=== PATIENT | female | born 1965 | race Caucasian/White ===

== ENCOUNTER 2021-03-06 11:53 | Outpatient (CLI) | payer OTHER, SELFPAY ==
[2021-03-06 12:37] VITALS: BP 120/77; PULSE 79; RESP 14; TEMP 37.2; O2SAT 97
[2021-03-06 13:46] VITALS: BP 109/70; PULSE 74; O2SAT 98
[2021-03-06 14:45] VITALS: BP 113/74; PULSE 72; O2SAT 98
== END 2021-03-06 14:52 | disposition home or self-care (01) ==
LOC: OPS 11:55
PROVIDERS: PCP Family Medicine; Visit Provider Nurse Practitioner Family
DX: U07.1 COVID-19 (principal)
CPT/HCPCS: 96365

== ENCOUNTER 2021-06-08 08:38 | Outpatient (CLI) | payer OTHER, SELFPAY ==
--- NOTE | 2021-06-08 08:50 | MM_ITS ---
WS: [id number] Bilateral screening digital mammogram, 06/08/2021 Clinical Data: SCREENING Comparison: 04/06/2019, 04/02/2018, 03/14/2017, 01/03/2012, 10/22/2006. Findings: The breast parenchymal pattern shows heterogeneous density No spiculated masses or clustered calcific ations are seen. There are no secondary signs of carcinoma. MM/[id number] Impression: 1. Negative bilateral mammogram unchanged. 2. Recommend annual screening mammograms. BIRADS: 1-Negative FOLLOW UP: 1 Year Follow-up The CAD mechanical car checker was used.
== END 2021-06-08 08:39 | disposition home or self-care (01) ==
LOC: RADSHAW 08:40
PROVIDERS: PCP Family Medicine; Visit Provider Family Medicine
DX: Z12.31 Encounter for screening mammogram for malignant neoplasm of breast (principal)
CPT/HCPCS: 77067

== ENCOUNTER 2021-07-02 07:58 | Outpatient (CLI) | payer OTHER, SELFPAY ==
--- NOTE | 2021-07-02 08:15 | CT_ITS ---
WS: [id number] CT ABDOMEN AND PELVIS WITH CONTRAST HISTORY: Colon mass. TECHNIQUE: Imaging performed of the abdomen and pelvis with IV contrast. Single phase imaging of the abdomen. Coronal and sagittal reformats are submitted. All CT scans at [facility] use at [address] one of these dose optimization techniques: automated exposure control; mA and/or kV adjustment per patient size (includes targeted exams where dose is matched to clinical indication); or iterative re construction. IV CONTRAST: Omnipaque 300; 95 mL IV. Oral contrast: Yes. DLP: 1048.58 mGycm COMPARISON: None available. Lower thorax: No focal nodule. Mild interstitial thickening at the lung bases. Heart is normal size. Small hiatal hernia. Liver/biliary system: Hypoechoic 6 mm nodule in the LEFT lobe of the liver adjacent to the gallbladde r. Too small to characterize and probably a cyst. Normal portal vein. Normal hepatic veins. Mild hepa tic steatosis along the falciform ligament. Gallbladder: Well distended gallbladder with cholelithiasis. Pancreas: Normal size pancreas and pancreatic duct. No adjacent inflammation. Spleen: Normal size spleen. No mass or infarct. Adrenal glands: Normal. Right kidney: Normal. Left kidney: Normal. Aorta: Minimal atherosclerotic plaque. Lymphadenopathy: None. Free fluid: None. GI tract: There is significant fecal retention and constipation throughout the distal colon obscuring the mucosa and the wall. No obstruction. Increased soft tissue in the ascending colon with slight na rrowing of the lumen may be a neoplasm. By history there is a colonic mass. The appendix is not defin itely visualized. No obstruction. Small bowel is negative. Abdominal wall: Fat containing umbilical hernia. Pelvis: No free fluid or adenopathy within the pelvis. Prior hysterectomy. Bones: Small cysts in the LEFT femoral neck. CT/CT abdomen pelvis w con* [id number] IMPRESSION: 1. No evidence for metastatic disease to the liver or adrenal glands. 2. Mild hepatic steatosis along the falciform ligament and a 6 mm cyst in the LEFT lobe. Next and cholelithiasis without acute cholecystitis. 3. Increased soft tissue in the ascending colon may be a neoplasm or retained fecal material. There is extensive fecal retention and constipation throughout the colon obscuring the wall and mucosa. 4. No adenopathy or ascites. 5. Prior colectomy.
[2021-07-02] MEDS: iohexol 300 mg/mL 100 mL Btl IV (10:28)
[2021-07-02] MEDS: iohexol 300 mg/mL 50 mL Btl PO (10:31)
== END 2021-07-02 07:59 | disposition home or self-care (01) ==
PROVIDERS: PCP Family Medicine; Visit Provider Family Medicine
DX: K63.89 Other specified diseases of intestine (principal); K76.0 Fatty (change of) liver, not elsewhere classified; Z90.49 Acquired absence of other specified parts of digestive tract
CPT/HCPCS: 74177; Q9967

== ENCOUNTER → 2021-07-06 11:47 | Outpatient (BNVA) | payer OTHER, SELFPAY | PROVIDERS: PCP Family Medicine; Visit Provider Surgery | DX: Z01.812 Encounter for preprocedural laboratory examination (principal); Z20.822 Contact with and (suspected) exposure to COVID-19 | CPT/HCPCS: 87635 ==

== ENCOUNTER 2021-07-12 17:35 | Inpatient (IN) | payer OTHER, SELFPAY ==
[2021-07-11 12:50] VITALS: BMI 29.2
[2021-07-12] VITALS (19 sets, daily range): BP systolic 112–154; BP diastolic 71–96; PULSE 93–112; RESP 8–20; TEMP 36.3–36.9; O2SAT 93–100; BMI 29.2
--- NOTE | 2021-07-12 08:49 | W.PM.OPSUD ---
Surgery/Procedure H&P Update DATE OF PROCEDURE: July 12, 2021 DATE H&P PERFORMED: 07/03/21 H&P UPDATE INFORMATION: No changes to prior documentation PREOP DIAGNOSIS: Ascending colon mass. PLANNED PROCEDURE: Operation Date: 07/12/21 10:55 Proposed Procedures p Exploratory Laparotomy K63.89 [id number](Not Applicable) - Valeriy Ndiaye MD s Hemicolectomy(Right) - Valeriy Ndiaye MD
--- NOTE | 2021-07-12 08:50 | ANES.PREANE2 ---
Pre-Anesthetic Assessment Pre-Anesthetic Assessment: Height/Weight: Height 1.65 m Weight 79.832 kg Temp Pulse Resp BP Pulse Ox 97.3 F L 96 18 132/86 98 07/12/21 08:47 07/12/21 08:47 07/12/21 08:47 07/12/21 08:47 07/12/21 08:47 Preop Diagnosis: Ascending colon mass. Proposed Procedure: Operation Date: 07/12/21 10:55 Proposed Procedures p Exploratory Laparotomy K63.89 [id number](Not Applicable) - Valeriy Ndiaye MD s Hemicolectomy(Right) - Valeriy Ndiaye MD Was Beta Kevyn taken within 24 hours: Yes Was Clonidine taken within 24 hours: N/A Social: Social History: No alcohol and No tobacco Airway: Submandibular: WNL Cervical ROM: WNL MP: 2 Pulmonary: Pulmonary: None reported CV/HEM: CV/HEM: HTN : : None reported Hepatic: Hepatic: None reported GI: GI: None reported Metabolic: Metabolic: None reported Neuropsych: Neuropsych: Anxiety and Depression Anesthetic Plan: ASA status: 2 Anesthesia: General Data Anesthesia Cardiac Studies: No Data to Display
[2021-07-12] MEDS: sodium chloride 0.9% 1,000 ML 30 ML IV (09:13)
[2021-07-12] MEDS: metroNIDAZOLE IV 500 MG/100 ML PREMIX 100 MG IV ×2 (09:31→17:42)
--- NOTE | 2021-07-12 10:23 | PM.OP ---
Operative Report Date of procedure: July 12, 2021 Pre-op Diagnosis: Ascending colon mass. Post-op diagnosis: same Procedure Done: Exploratory laparotomy with right hemicolectomy. Specimens removed/disposition: Right/ascending colon. Surgeon: Valeriy Ndiaye Anesthesia: General Estimated blood loss (mL): 75 Complications: None. Condition: stable Disposition: PACU Procedure: The patient was brought to the operating room and was placed in a supine position on the operating room table. General endotracheal anesthesia was induced. A Jenkins catheter was inserted. The abdomen was prepped and draped in a sterile fashion. A midline incision was carried out in the midepigastrium to a level below the umbilicus. Cautery was used to divide the subcutaneous tissue and the midline fascia and the peritoneal cavity was entered. The patient had some light omental adhesions to the mid?lower abdomen which were easily taken down. Palpation revealed no liver masses. The patient had a moderate amount of intraperitoneal fat but the ascending colon felt a little bulky in its mid aspect. The right colon was mobilized by incising the peritoneal reflection laterally up around the hepatic flexure. This allowed the colon to be moved medially. As this was done, a sizable ink spot posteriorly on the colon from the patient's previous endoscopic procedure was found. The duodenum was identified as the colon was further mobilized. At a suitable point in the transverse colon the colon was divided using a GERALD 55 stapler. The terminal ileum was divided using the same. The intervening mesentery was then divided using the LigaSure. Larger vessels were also ligated with ties of 2-0 or 0 Vicryl. The specimen was removed. The abdomen was irrigated with saline. The ileum and transverse colon were brought side to side in preparation for the formation of a functional end to end anastomosis. The 2 limbs of bowel were held together with some stay sutures of 3-0 Vicryl. A small enterotomy was made at the end of the staple line of the small intestine using cautery. A small colotomy was made in the tenia near the staple line of the colon. An arm of a GERALD 55 stapler was passed down either limb of bowel and was fired, opening the bustillo between the 2 limbs of bowel. The staple lines were transposed and the common opening on the end was closed using a TA 60 stapler. Some stay sutures of 3-0 Vicryl were placed at the proximal end of the staple line to take tension off of the anastomosis at that point. The mesenteric window was closed using a running suture of 3-0 Vicryl. The anastomosis was palpably patent and the bowel was viable. The abdomen was irrigated with several liters of saline. No ongoing problems were seen. The remaining omentum was brought over the bowel and attention was directed towards closure. The midline fascia was closed using a running looped suture of #1 PDS. The subcutaneous tissue was irrigated and the skin was approximated using skin rhianna. A sterile dressing was placed over the wound and the patient was taken to the recovery room in stable condition postoperatively.
[2021-07-12] MEDS: fentaNYL 50 mcg/mL INJ 2mL IVP ×2 (10:55→16:38)
--- NOTE | 2021-07-12 11:42 | SUR.PHASEI ---
patient given ice chips. scd machine turned on, family in room with patient.
--- NOTE | 2021-07-12 14:25 | SUR.PHASEI ---
patients daughter left. call light at bedside. patient says she is comfortable at this time.
[2021-07-12] MEDS: ceFAZolin 1,000 MG in sodium chloride 0.9% (plus) 50 ML 100 MG IV ×2 (16:54→23:57)
[2021-07-12] MEDS: famotidine 20 mg/2 mL INJ IVP (18:51)
[2021-07-12] MEDS: D5-NS 0.45% + KCL 20 mEq 20 MEQ/1,000 ML BAG 100 MEQ IV (18:51)
[2021-07-12] MEDS: metoprolol tartrate 25 mg Tablet PO (18:52)
[2021-07-12] MEDS: heparin 5,000 unit/mL INJ 1 mL 5000 UNIT SUBCUT (18:52)
--- NOTE | 2021-07-12 20:06 | ANE.PACU2 ---
Inpatient post-anesthesia follow up: Airway intact: Yes Vital signs: Temperature 98.1 F Pulse Rate 105 Respiratory Rate 19 Blood Pressure 122/79 Pulse Oximetry 98 Oxygen Delivery Me thod Nasal Cannula Oxygen Flow Rate 2 Fraction of Inspir ed Oxygen Hydration adequate: No Nausea and vomiting: Yes Pain level: 3 Mental status: Baseline
[2021-07-12] MEDS: mirtazapine 15 mg Tablet PO (21:16)
[2021-07-12] MEDS: lanolin oint 7 gm 1 APPLIC TOPICAL (23:56)
[2021-07-13] VITALS (8 sets, daily range): BP systolic 102–138; BP diastolic 65–84; PULSE 79–110; RESP 16–20; TEMP 36.6–36.9; O2SAT 90–98
[2021-07-13] MEDS: ALPRAZolam 0.5 mg Tablet 0.25 MG PO (00:40)
[2021-07-13] MEDS: metroNIDAZOLE IV 500 MG/100 ML PREMIX 100 MG IV ×2 (00:41→08:58)
[2021-07-13 03:47] LABS: Basophils % 0.1 %; Hematocrit 32.2 % (37.0-47.0); Hemoglobin 10.4 g/dL (11.5-15.3); Lymphocytes # 1.2 10^3/uL (0.8-4.8); Lymphocytes % 10.2 %; Mean Corpuscular HGB Conc 32.3 g/dL (30.0-36.0); Mean Corpuscular Volume 80.5 fl (81-99); Mean Platelet Volume 9.1 fL (7.4-10.4); Monocytes # 1.1 10^3/uL (0.2-0.9); Monocytes % 9.3 %; Neutrophils % 80.1 %; Nucleated Red Blood Cells % 0 %; Platelet Count 352 10^3/cmm (130-400); Red Cell Distribution Width 13.2 % (12.1-15.1); White Blood Count 11.7 10^3/uL (4.0-10.0)
[2021-07-13 04:09] LABS: Anion Gap 9.9 (5-19); Blood Urea Nitrogen 10 mg/dL (6-20); Calcium 8.1 mg/dL (8.5-10.5); Carbon Dioxide 27 mmol/L (22-29); Chloride 103 mmol/L (98-107); Glomerular Filtration Rate 86.6 mL/min (90-130); Glucose 146 mg/dL (65-115); Osmolality Calculated 286 mOsm/kg (285-295); Sodium 137 mmol/L (136-145)
[2021-07-13 04:11] LABS: Potassium 2.9 mmol/L (3.5-5.1)
--- NOTE | 2021-07-13 04:19 | PC.NURSE ---
Received call from Sulma in Lab reporting critical potassium of 2.9 at 0412. Called receptionist secretary surgeon Dr. Canales who instructed me to call Dr. Ndiaye. Called Dr. Ndiaye. New order for krider 40meq x1 received. Dr. Ndiaye aware patient has 20 meq of potassium in maintenance fluid running as well.
[2021-07-13] MEDS: lidocaine 1% 5 ML in potassium chloride premix 100 ML 25 ML IV (04:45)
[2021-07-13] MEDS: heparin 5,000 unit/mL INJ 1 mL 5000 UNIT SUBCUT ×2 (06:45→17:27)
[2021-07-13] MEDS: famotidine 20 mg/2 mL INJ IVP ×2 (06:45→17:27)
--- NOTE | 2021-07-13 08:48 | PM.PN ---
Subjective Subjective: Interval history: The patient sore but is otherwise doing well. She says she is actually already starting to pass flatus. She does have some what of an appetite. Vitals/I&O/Wt Last Vital Signs Temp 98.2 F 07/13/21 07:41 Pulse 110 H 07/13/21 07:41 Resp 18 07/13/21 07:41 BP 138/69 07/13/21 07:41 Pulse Ox 90 07/13/21 07:41 07/12/21 07/13/21 07/13/21 22:59 06:59 14:59 Intake Total 1270 / 3101.667 1171.667 / 3101.667 Output Total 600 / 800 Balance 1270 / 2301.667 571.667 / 2301.667 Weight last 48 hrs Weight 181 lb 1.6 oz Weight 176 lb Weight 176 lb Physical Exam Narrative: EXAM NARRATIVE: Bowel sounds are quite active today. The midline dressing has a small amount of saturation on it which appears to be stable as evidenced by the pen smiley. 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 Pathology pending. I told the patient I will allow her some sips of clear liquids but I want her to take it slow. Potassium is being replaced. Up in chair today. Status: Acute Attestations Medical Necessity Statement*: Patient requires continued inpatient care following hemicolectomy for neoplasm. Coding Level of Care Code Acute Processing Operator for Areli Palma Diagnoses Colon neoplasm D49.0
[2021-07-13] MEDS: chlorthalidone 25 mg Tablet PO (08:58)
[2021-07-13] MEDS: lisinopril 20 mg Tablet PO (08:58)
[2021-07-13] MEDS: metoprolol tartrate 25 mg Tablet PO ×2 (08:58→17:27)
[2021-07-13] MEDS: citalopram 20 mg Tablet 40 MG PO (08:58)
[2021-07-13] MEDS: D5-NS 0.45% + KCL 20 mEq 20 MEQ/1,000 ML BAG 100 MEQ IV ×2 (11:13→19:51)
[2021-07-13] MEDS: ceFAZolin 1,000 MG in sodium chloride 0.9% (plus) 50 ML 100 MG IV (11:13)
--- NOTE | 2021-07-13 14:10 | PC.CHAP ---
Pastoral Care Encounter/Spiritual Assessment Type of Contact [] Declined rental management trainee visit [] Patient/Family/Request visit [] Outpatient visit [] Follow-up visit [] Physician referral [] Code/Alert [] Routine visit [] Staff referral [] Actively dying [] Patient sleeping [] Family support [] [] Out of room [] Palliative care [] [xx] Receiving care in room [] Pre-surgical visit [] Trauma [] Long length of stay [] ICU visit [] Other: Relational/Emotional Strength [] Patient feels connected with others/family/visitors/staff [] Distress [] Loneliness/isolation [] Abandonment Spirituality of Patient [] Person of Bety [] Attends Jainism of their Bety [] Believes in Prayer [] Reads Bible or Holiness materials [] There are Spiritual issues to be addressed Veterinary Virologist Interventions [] Prayer [] Active listening [] Non-anxious presence [] Spiritual/emotional support [] Crisis/trauma care [] Spiritual counseling [] Bereavement support [] Provided bereavement packet [] Provided Bible/devotional materials [] Provided toy/stuffed animal, coloring book to patient or family member [] Provided Communion [] Anointing/[place] [] Salvation [] Completed spiritual assessment [] Other: Impact on Illness or Injury [] Angry [] Fearful [] Anxious [] Often cries [] Exhaustion [] Unable to work [] Unable to attend orthodox [] Unable to walk/stand [] Unable to read [] Unable to drive [] Unable to eat/drink [] Unable to sleep [] Unable to be with family [] Patient intubated [] Other: Summary Follow up needed. Time spent with patient
[2021-07-13] MEDS: mirtazapine 15 mg Tablet PO (20:00)
[2021-07-14] VITALS (7 sets, daily range): BP systolic 99–136; BP diastolic 62–83; PULSE 72–97; RESP 16–18; TEMP 36.6–37.2; O2SAT 85–99
[2021-07-14 05:58] LABS: Basophils % 0.4 %; Eosinophils % 0.2 %; Hematocrit 30.1 % (37.0-47.0); Hemoglobin 9.7 g/dL (11.5-15.3); Lymphocytes # 2.4 10^3/uL (0.8-4.8); Lymphocytes % 21.6 %; Mean Corpuscular HGB Conc 32.2 g/dL (30.0-36.0); Mean Corpuscular Hemoglobin 26.2 pg (28.0-34.0); Mean Corpuscular Volume 81.4 fl (81-99); Monocytes # 0.9 10^3/uL (0.2-0.9); Monocytes % 7.8 %; Neutrophils # 7.62 10^3/uL (1.8-7.7); Neutrophils % 69.4 %; Nucleated Red Blood Cells % 0 %; Platelet Count 302 10^3/cmm (130-400); Red Cell Distribution Width 13.2 % (12.1-15.1)
[2021-07-14] MEDS: D5-NS 0.45% + KCL 20 mEq 20 MEQ/1,000 ML BAG 100 MEQ IV (06:01)
[2021-07-14] MEDS: heparin 5,000 unit/mL INJ 1 mL 5000 UNIT SUBCUT ×2 (06:02→17:27)
[2021-07-14] MEDS: famotidine 20 mg/2 mL INJ IVP ×2 (06:02→17:27)
[2021-07-14 06:14] LABS: Blood Urea Nitrogen 6 mg/dL (6-20); Calcium 8.1 mg/dL (8.5-10.5); Carbon Dioxide 27 mmol/L (22-29); Chloride 100 mmol/L (98-107); Glomerular Filtration Rate 127.6 mL/min (90-130); Glucose 135 mg/dL (65-115); Osmolality Calculated 282 mOsm/kg (285-295); Sodium 136 mmol/L (136-145)
--- NOTE | 2021-07-14 08:55 | P.PN_ITS ---
Subjective Subjective: Interval history: The patient had several bowel movements yesterday. She is tolerating a clear liquid diet. She is getting her appetite back. She has been sticking with the IV pain medication as she remains somewhat sore. Vitals/I&O/Wt Last Vital Signs Temp 98.2 F 07/14/21 07:48 Pulse 97 07/14/21 08:00 Resp 16 07/14/21 08:00 BP 136/83 07/14/21 07:48 Pulse Ox 92 07/14/21 08:00 07/13/21 07/14/21 07/14/21 22:59 06:59 14:59 Intake Total 1103.333 / 3446.666 1480 / 3446.666 Output Total 1520 / 2420 900 / 2420 Balance -416.667 / 1026.666 580 / 1026.666 Weight last 48 hrs Weight 181 lb 1.6 oz Weight 176 lb Physical Exam Narrative: EXAM NARRATIVE: Abdominal dressing was removed. The incision looks good. Bowel sounds are active. Urinary Catheter Management^: Jenkins: Cath Placed During This Visit: yes Reason for Continuing Indwelling Catheter: Perioperative Use in Selected Surgeries Urinary Catheter Date of Insertion: 07/12/21 Urinary Catheter Time of Insertion: 09:30 Data : 07/14/21 05:45 07/14/21 05:45 A&P Assessment and plan (1) Colon neoplasm: Status post exploratory laparotomy with right hemicolectomy for neoplasm on 07/12/2021. Pathology pending. Remove Jenkins catheter. Ambulate. GI soft diet. Replace potassium. Status: Acute Attestations Medical Necessity Statement*: Patient requires continued inpatient care following hemicolectomy for neoplasm. Coding Level of Care Code Acute Specialties Operator for Areli Palma Diagnoses Colon neoplasm D49.0
[2021-07-14] MEDS: lidocaine 1% 5 ML in potassium chloride premix 100 ML 25 ML IV (09:38)
[2021-07-14] MEDS: citalopram 20 mg Tablet 40 MG PO (09:39)
[2021-07-14] MEDS: metoprolol tartrate 25 mg Tablet PO ×2 (09:39→17:27)
[2021-07-14] MEDS: chlorthalidone 25 mg Tablet PO (09:39)
[2021-07-14] MEDS: risperiDONE 0.25 mg Tablet 0.5 MG PO (09:39)
[2021-07-14] MEDS: lisinopril 20 mg Tablet PO (09:39)
[2021-07-14] MEDS: dicyclomine 10 mg Capsule PO ×3 (09:40→21:02)
--- NOTE | 2021-07-14 11:46 | PC.CHAP ---
Pastoral Care Encounter/Spiritual Assessment Type of Contact [] Declined associate director career services visit [] Patient/Family/Request visit [] Outpatient visit [] Follow-up visit [] Physician referral [] Code/Alert [XX] Routine visit [] Staff referral [] Actively dying [] Patient sleeping [] Family support [] [] Out of room [] Palliative care [] [] Receiving care in room [] Pre-surgical visit [] Trauma [] Long length of stay [] ICU visit [] Other: Relational/Emotional Strength [XX] Patient feels connected with others/family/visitors/staff [] Distress [] Loneliness/isolation [] Abandonment Spirituality of Patient [XX] Person of Bety [XX] Attends Mormon of their Bety [XX] Believes in Prayer [XX] Reads Bible or Episcopal materials [] There are Spiritual issues to be addressed Document Control Manager Interventions [XX] Prayer [XX] Active listening [XX] Non-anxious presence [] Spiritual/emotional support [] Crisis/trauma care [] Spiritual counseling [] Bereavement support [] Provided bereavement packet [] Provided Bible/devotional materials [] Provided toy/stuffed animal, coloring book to patient or family member [] Provided Communion [] Anointing/[place] [] Salvation [XX] Completed spiritual assessment [] Other: Impact on Illness or Injury [] Angry [] Fearful [] Anxious [] Often cries [] Exhaustion [] Unable to work [] Unable to attend pentecostal [] Unable to walk/stand [] Unable to read [] Unable to drive [] Unable to eat/drink [] Unable to sleep [] Unable to be with family [] Patient intubated [] Other: Summary: Pt in good spirits and seemingly doing quite well post surgery to remove mass from colon. Biopsy of mass (during colonoscopy) was benign; pt is awaiting confirmation of this. Pt is very proactive as evidenced by having the colonoscopy in the first place, she is intentionally moving around to stay strong and improve, and prior to surgery, she read devotionals and listened to positive music in preparation. Pt reports a support system consisting of family and friends. Time spent with patient: 20 mins
[2021-07-14] MEDS: dextrose 5%-ns 0.45% + KCl 40 1,000 ML 75 MEQ IV (12:44)
--- NOTE | 2021-07-14 18:35 | PC.NURSE ---
pt has done well today. tolerated GI soft diet with no complaints. she walked multiple times in the rahman.
[2021-07-14] MEDS: mirtazapine 15 mg Tablet PO (21:02)
[2021-07-15] VITALS (7 sets, daily range): BP systolic 91–119; BP diastolic 60–82; PULSE 82–97; RESP 14–18; TEMP 36.5–37.1; O2SAT 94–96
[2021-07-15] MEDS: dextrose 5%-ns 0.45% + KCl 40 1,000 ML 75 MEQ IV (00:50)
[2021-07-15 03:54] LABS: Basophils # 0.1 10^3/uL (0.0-0.1); Basophils % 0.6 %; Eosinophils # 0.1 10^3/uL (0.0-0.8); Hematocrit 30.6 % (37.0-47.0); Hemoglobin 9.7 g/dL (11.5-15.3); Lymphocytes # 3.3 10^3/uL (0.8-4.8); Lymphocytes % 30.6 %; Mean Corpuscular HGB Conc 31.7 g/dL (30.0-36.0); Mean Corpuscular Hemoglobin 25.9 pg (28.0-34.0); Mean Corpuscular Volume 81.8 fl (81-99); Mean Platelet Volume 9.3 fL (7.4-10.4); Monocytes # 0.8 10^3/uL (0.2-0.9); Monocytes % 7.7 %; Neutrophils # 6.52 10^3/uL (1.8-7.7); Neutrophils % 59.7 %; Nucleated Red Blood Cells % 0 %; Platelet Count 338 10^3/cmm (130-400); Red Blood Count 3.74 10^6/uL (4.1-5.3); Red Cell Distribution Width 13.4 % (12.1-15.1); White Blood Count 10.9 10^3/uL (4.0-10.0)
[2021-07-15 04:16] LABS: Anion Gap 11.6 (5-19); Blood Urea Nitrogen 7 mg/dL (6-20); Calcium 8.7 mg/dL (8.5-10.5); Carbon Dioxide 28 mmol/L (22-29); Chloride 104 mmol/L (98-107); Glomerular Filtration Rate 103.4 mL/min (90-130); Glucose 111 mg/dL (65-115); Magnesium 1.8 mg/dL (1.7-2.3); Osmolality Calculated 289 mOsm/kg (285-295); Potassium 3.6 mmol/L (3.5-5.1); Sodium 140 mmol/L (136-145)
[2021-07-15] MEDS: famotidine 20 mg/2 mL INJ IVP (06:50)
[2021-07-15] MEDS: heparin 5,000 unit/mL INJ 1 mL 5000 UNIT SUBCUT (06:50)
--- NOTE | 2021-07-15 08:38 | PM.DCS ---
Discharge Providers Date of Admission: 07/12/21 17:35 Date of Discharge: July 15, 2021 Attending Provider at Admission: Valeriy Ndiaye MD Attending Provider at Discharge: Valeriy Ndiaye MD Primary Care Provider: Omar Hayes MD Diagnoses at Discharge Discharge Diagnosis (1) Colon neoplasm: Status: Acute Hospital Course Hospital Course This is a 56-year-old white female who was found to have a suspicious neoplasm in the ascending colon on endoscopy. Biopsies only revealed tissue consistent with tubular adenoma, but there was suspicion that there was something more significant in the deeper layers. A right hemicolectomy was suggested and the patient agreed to proceed. The patient was admitted on 07/12/2021 after undergoing a bowel prep at home. She underwent an exploratory laparotomy and right hemicolectomy on the same day. Postoperatively the patient did very well. Her bowel function returned and her diet was advanced which she tolerated well. She had several small bowel movements and continued to pass flatus and by 07/15/2021 she thought she was ready to go home. She was instructed with respect to wound care, diet, activity limitations, etc. I will make arrangements for the patient to follow-up with me in the office in a period of 7 to 10 days. Final pathology was still pending at the time of discharge. Physical Exam Narrative: EXAM NARRATIVE: Vital signs are stable. Bowel sounds are present. The incision looks good. Urinary Catheter Management^: Jenkins: Cath Placed During This Visit: yes, but has since been removed by the nurse Reason for Continuing Indwelling Catheter: Perioperative Use in Selected Surgeries Urinary Catheter Date of Insertion: 07/12/21 Urinary Catheter Time of Insertion: 09:30 Date Urinary Catheter Removed: 07/14/21 Time Urinary Catheter Discontinued: 10:32 Discharge Data Data Completed and Pending: Completed Studies During Hospitalization Category Date Time Status Pathology: Surgic al [PTH] Routine Pth 07/12/21 10:45 Completed Pending at discharge Category Date Time Status Miscellaneous Lela t Routine Lab 07/12/21 10:57 Received Labs from last 24 hours 07/15/21 07/15/21 03:45 03:45 WBC 10.9 H RBC 3.74 L Hgb 9.7 L Hct 30.6 L MCV 81.8 MCH 25.9 L MCHC 31.7 RDW 13.4 Plt Count 338 MPV 9.3 Neut % (Auto) 59.7 Lymph % (Auto) 30.6 Thomas % (Auto) 7.7 Eos % (Auto) 1.0 Baso % (Auto) 0.6 Neut # (Auto) 6.52 Lymph # (Auto) 3.3 Thomas # (Auto) 0.8 Eos # (Auto) 0.1 Baso # (Auto) 0.1 Nucleated RBC % (a uto) 0 Nucleated RBCs # 0.0 Sodium 140 Potassium 3.6 Chloride 104 Carbon Dioxide 28 Anion Gap 11.6 BUN 7 Creatinine 0.6 GFR Calculation 103.4 Glucose 111 Calculated Osmolal ity 289 Calcium 8.7 Magnesium 1.8 Vitals: Last Vital Signs Temp 98.4 F 07/15/21 07:15 Pulse 82 07/15/21 07:56 Resp 18 07/15/21 07:56 BP 110/72 07/15/21 07:15 Pulse Ox 94 07/15/21 07:56 Discharge Plan Discharge Patient Disposition: Home Condition: Stable Prescriptions: New hydrocodone-acetaminophen 5-325 mg tablet 1 - 2 tab PO Q5H PRN (Reason: pain) Qty: 30 RF: 0 Continued citalopram 40 mg tablet 40 mg PO DAILY RF: 0 lisinopril 20 mg tablet 20 mg PO DAILY RF: 0 chlorthalidone 25 mg tablet 25 mg PO DAILY RF: 0 alprazolam 0.25 mg tablet 0.25 mg PO PRN PRN (Reason: Anxiety) RF: 0 mirtazapine 15 mg tablet 15 mg PO BEDTIME RF: 0 risperidone 0.5 mg tablet 0.5 mg PO DAILY RF: 0 metoprolol tartrate 25 mg tablet 25 mg PO BID RF: 0 Changed dicyclomine 10 mg capsule 10 mg PO TID PRN (Reason: Cramps) Qty: 0 RF: 0 Discharge Orders: Discharge Order (Routine); Ordered 07/15/21 Ordered By: Valeriy Ndiaye Referrals: Valeriy Ndiaye MD [Physician] - 7-10 days (Nursing: Please have the patient / family call Dr. Ndiaye's office on Friday ([phone]) and make an appointment for the patient to be seen in 7-10 days.) Discharge Diet: Advance as tolerated Discharge Activity: Limit activity as instructed Patient Instructions: Opioid Safety Activity Restrictions/Additional Instructions: 1. Discharge to home today. 2. Appointment to see Dr. Ndiaye in 7-10 days as above. 3. May shower at home, okay to get incision wet. 4. [place] 5/325 1-2 tablets by mouth every 5 hours as needed for pain. #30, no refills. No lifting over 20 pounds, no repetitive bending or twisting, no strenuous pushing / pulling or other heavy activity. Ambulate regularly. May go up and down steps if needed. Discharge Attestations Time Spent in Discharge Care*: less than 30 min Quality Metrics Clinical Quality Measures During this hospital stay, did patient experience: None Coding Level of Care Code Acute g DC note Diagnoses Colon neoplasm D49.0
[2021-07-15] MEDS: citalopram 20 mg Tablet 40 MG PO (08:40)
[2021-07-15] MEDS: risperiDONE 0.25 mg Tablet 0.5 MG PO (08:40)
[2021-07-15] MEDS: lisinopril 20 mg Tablet PO (08:41)
[2021-07-15] MEDS: metoprolol tartrate 25 mg Tablet PO (08:41)
[2021-07-15] MEDS: chlorthalidone 25 mg Tablet PO (08:41)
--- NOTE | 2021-07-15 16:48 | PC.NURSE ---
patient verbalized understanding of discharge instructions, home medications, and follow up appointments. IV removed.
[2021-07-18 09:32] LABS: Miscellaneous Test See Scanned Lab Rpt
== END 2021-07-15 16:30 | disposition home or self-care (01) | DRG 331 ==
LOC: MEDSURG 17:36
PROVIDERS: Admitting Provider Surgery; PCP Family Medicine; Visit Provider Surgery
PROC: 0DTF0ZZ Resection of Right Large Intestine, Open Approach (ICD-10-PCS; CPT 49000; principal; 2021-07-12 10:55)
PROC: 0DTF0ZZ Resection of Right Large Intestine, Open Approach (ICD-10-PCS; 2021-07-12 10:55)
DX: D49.0 Neoplasm of unspecified behavior of digestive system (principal); I10 Essential (primary) hypertension; F32.A Depression, unspecified; F41.9 Anxiety disorder, unspecified; Z86.010 Personal history of colon polyps
CPT/HCPCS: 36415; 51702; 80048; 83735; 85025; 88309; 88341; 88342; 88360; 96365; 96372; J0690; J1100; J1170; J1644; J2250; J2405; J2704; J3010; J3480; J3490; J7030; S0030

== ENCOUNTER 2022-02-28 20:38 | Emergency (ER) | payer OTHER, SELFPAY ==
[2022-02-28 21:41] VITALS: BP 114/66; PULSE 91; RESP 21; TEMP 37.4; O2SAT 92; BMI 28.5
--- NOTE | 2022-02-28 22:50 | XRR_ITS ---
PROCEDURE INFORMATION: Exam: XR Chest Exam date and time: 02/28/2022 10:57 PM Age: 56 years old Clinical indication: Cough; Additional info: Dyspnea, cough, congestion TECHNIQUE: Imaging protocol: Radiologic exam of the chest. Views: 2 views. COMPARISON: CR Chest 1 [place] [id number] 09/22/2016 1:10 PM FINDINGS: Lungs: Mildly hyperaerated lungs consistent with deep inspiratory effort vs reactive airway disease vs mild COPD . Pleural spaces: Unremarkable. No pleural effusion. No pneumothorax. Heart/Mediastinum: Unremarkable. No cardiomegaly. Bones/joints: Dextroscoliosis. XR/XR chest 2V* [id number] IMPRESSION: Mildly hyperaerated lungs consistent with deep inspiratory effort vs reactive airway disease vs mild COPD .
[2022-03-01 00:20] VITALS: PULSE 74; O2SAT 95
--- NOTE | 2022-03-01 00:21 | ED_ITS ---
HPI - General Adult General: Chief complaint: General Medical Stated complaint: Conjestions and Mouth Sores Time Seen by Provider: 03/01/22 00:21 History of Present Illness: 56-year-old female comes in with a 1 week episode of cough and congestion and feeling of malaise. Patient reports seeing her primary care on Friday with the symptoms starting last Friday. Patient reports congested cough. Patient appears mildly unwell but not toxic. Patient appears in mild discomfort. Patient reports a history of bronchitis but no history of asthma. Patient does take some routine medications for blood pressure. Associated symptoms: Reports dyspnea; Deny chest pain Review of Systems General: Reports: 10 or more systems reviewed and unremarkable except in HPI and below Const: Denies: fever(s) Card: Denies: chest pain Resp: Reports: dyspnea and productive cough PFS ED PFSH: Medical History (Updated 03/01/22 @ 00:40 by ROSA Mccabe) Anxiety and depression Cholelithiasis Colon polyps GERD (gastroesophageal reflux disease) Hypertension IBS (irritable bowel syndrome) Surgical History (Updated 07/14/21 @ 08:59 by Valeriy Ndiaye MD) History of hysterectomy / BSO History of right hemicolectomy Family History (Updated 07/14/21 @ 09:00 by Valeriy Ndiaye MD) Mother Cancer Lymphoma Social History (Updated 07/14/21 @ 08:59 by Valeriy Ndiaye MD) Smoking and tobacco status: never smoked Physical Exam Const: COMMON NORMALS: alert Neck/C-Spine: COMMON NORMALS: no lymphadenopathy Resp: COMMON NORMALS: normal respiratory effort AUSCULTATION: rhonchi Cardio: COMMON NORMALS: regular rate RATE: regular rate Extremity: COMMON NORMALS: no pedal edema Neuro: SENSORIUM/ORIENTATION: Yes alert Skin: COMMON NORMALS: no rashes or lesions noted GENERAL SKIN EXAM: no rashes or lesions noted Course Vital Signs: Vital signs: Vital Signs Temperature 99.4 F 02/28/22 21:41 Pulse Rate 78 03/01/22 01:00 Respiratory Rate 16 03/01/22 01:00 Blood Pressure 114/66 02/28/22 21:41 Pulse Oximetry 97 03/01/22 01:00 Oxygen Delivery Me thod 03/01/22 01:00 [facility] - General Adult Medical Decision Making 56-year-old female comes in today for complaints of persistent cough and congestion. On exam patient has rhonchi in lung gutierres. Good air movement throughout lungs. Skin is warm and dry. Vital signs are normal. Differential diagnosis includes pneumonia, bronchitis, asthma. Chest x-ray noted signs of mild reactive airway. Patient was treated with steroids, doxycycline, and nebulizer and albuterol treatment. Reviewed exam with patient with recommendations for further treatment and follow-up. Patient reported understanding agreed to plan. Lab Data Radiology Impressions Chest X-Ray 02/28/22 22:50 IMPRESSION: Mildly hyperaerated lungs consistent with deep inspiratory effort vs reactive airway disease vs mild COPD . Discharge Plan Discharge Patient Disposition: Home Clinical Impression: Bronchitis Condition: Stable Prescriptions: New doxycycline monohydrate 100 mg capsule 100 mg PO BID 7 Days Qty: 14 0RF dexamethasone 6 mg tablet 6 mg PO DAILY Qty: 5 0RF No Action citalopram 40 mg tablet 40 mg PO DAILY lisinopril 20 mg tablet 20 mg PO DAILY chlorthalidone 25 mg tablet 25 mg PO DAILY alprazolam 0.25 mg tablet 0.25 mg PO PRN PRN (Reason: Anxiety) mirtazapine 15 mg tablet 15 mg PO BEDTIME risperidone 0.5 mg tablet 0.5 mg PO DAILY metoprolol tartrate 25 mg tablet 25 mg PO BID hydrocodone-acetaminophen 5-325 mg tablet 1 - 2 tab PO Q5H PRN (Reason: pain) Qty: 30 0RF dicyclomine 10 mg capsule 10 mg PO TID PRN (Reason: Cramps) Qty: 0 0RF Discharge Orders: Discharge ED (Routine); Ordered 03/01/22 Ordered By: Kali Mueller Referrals: Omar Hayes MD [Primary Care Provider] - Discharge Diet: Usual diet Discharge Activity: Increase activity as tolerated Patient Instructions: Acute Bronchitis (ED) Activity Restrictions/Additional Instructions: Home and rest. Drink plenty of fluids. Use albuterol inhaler 2 puffs every 4 hours as needed for cough and congestion. Continue with dexamethasone and doxycycline as instructed. Follow-up with primary care in 5 days for recheck. Return to ER for worsening symptoms or new concerns. Coding Level of Care Code ED Registered Route Associate for Areli Palma
[2022-03-01] MEDS: doxycycline 100 mg Tablet PO (00:49)
[2022-03-01] MEDS: dexamethasone 10 mg/mL INJ IM (00:49)
[2022-03-01] MEDS: albuterol 8 gm MDI 2 PUFF INHALATION (00:59)
[2022-03-01] MEDS: ipratropium-albuterol 3 mL Neb INHALATION (00:59)
[2022-03-01 01:00] VITALS: PULSE 78; RESP 16; O2SAT 97
[2022-03-01 01:21] VITALS: BP 116/69; PULSE 97; RESP 18; O2SAT 92
== END 2022-03-01 01:21 | disposition home or self-care (01) ==
PROVIDERS: Emergency Provider Nurse Practitioner Family; PCP Family Medicine
DX: J40 Bronchitis, not specified as acute or chronic (principal); I10 Essential (primary) hypertension
CPT/HCPCS: 71046; 94640; 96372; 99284; J1100; J3535

== ENCOUNTER 2022-08-16 12:18 | Outpatient (CLI) | payer OTHER, SELFPAY ==
--- NOTE | 2022-08-16 13:03 | MM_ITS ---
WS: [id number] BILATERAL 3D TOMOSYNTHESIS DIGITAL SCREENING MAMMOGRAPHY WITH CAD CLINICAL INFORMATION: SCREENING HISTORY: Screening mammogram. No current complaints. COMPARISON: June 08, 2021 TECHNIQUE: Bilateral CC and MLO views. FINDINGS: The breasts are composed of heterogeneous fibroglandular density tissue, which can limit the detectio n of small underlying mass lesions. No suspicious mass, asymmetry, calcifications, or architectural d istortion. No evidence of malignancy. MM/[place] [id number] IMPRESSION: BI-RADS: 1-Negative FOLLOW UP: 1 Year Follow-up Recommend return to annual screening mammography.
== END 2022-08-16 12:19 | disposition home or self-care (01) ==
LOC: RAD 12:19
PROVIDERS: PCP Family Medicine; Visit Provider Family Medicine
DX: Z12.31 Encounter for screening mammogram for malignant neoplasm of breast (principal)
CPT/HCPCS: 77063; 77067

== ENCOUNTER 2023-03-03 11:19 | Outpatient (CLI) | payer OTHER, SELFPAY ==
--- NOTE | 2023-03-03 | ECG_ITS ---
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 Interpretive Statements NAME OF STUDY: TREADMILL STRESS TEST INDICATION: Atypical Chest Pain Baseline blood pressure of 100/70 mm Hg, heart rate of 77 beats per minute. EKG showed sinus rhythm with first-degree AV block. Left axis deviation with nonspecific T wave inversion in aVL and V2. Poor anterior R wave progression. The patient exercised for 5 minutes and 11 seconds on a standard Aaron protocol. Patient attained a maximum heart rate of 146 beats per minute(89% of the maximum predicted heart rate) with a blood pressure at the peak exercise of 156/90 mm Hg. The EKG at the peak exercise revealed sinus tachycardia with no significant ST-T wave changes. Patient did not have any chest pain or any significant arrhythmis with the exercise During the recovery phase, there were no new changes. Blood pressure at the end of the recovery phase was 138/71 mm Hg with a heart rate of 99 beats per minute. CONCLUSION: 1. Normal EKG response to treadmill exercise. Interpretation limited by baseline T wave changes. 2. No exercise-induced chest pain or cardiac arrhythmia. 3. Fair exercise tolerance, attained a maximum of 7 METs. 4. Baseline normal blood pressure with normal response to exercise. Electronically Signed On 03-04-2023 12:13:17 CDT by Herminia Braga M.D. [email or web address]
[2023-03-03 12:04] VITALS: BP 138/71; PULSE 98
== END 2023-03-03 11:20 | disposition home or self-care (01) ==
PROVIDERS: PCP Family Medicine; Visit Provider Family Medicine
DX: R07.89 Other chest pain (principal)
CPT/HCPCS: 93017

== ENCOUNTER 2025-05-26 13:53 | Outpatient (CLI) | payer OTHER, SELFPAY ==
--- NOTE | 2025-05-26 14:00 | MM_ITS ---
WS: [id number] BILATERAL SCREENING DIGITAL TOMOSYNTHESIS MAMMOGRAM WITH CAD HISTORY: SCREENING COMPARISON: 08/16/2022, 06/08/2021 Bilateral CC and MLO views with tomosynthesis and synthetic mammography submitted. Computer aided detection analyzed. Breast composition: The breasts are heterogeneously dense, which may obscure small masses. No suspicious masses, microcalcifications or architectural distortion. Benign breast arterial calcifications. MM/MM scr tomosynthesis [id number] IMPRESSION: BI-RADS: 2 - Benign FOLLOW UP: 1 Year Follow-up
== END 2025-05-26 13:54 | disposition home or self-care (01) ==
PROVIDERS: PCP Family Medicine; Visit Provider Family Medicine
DX: Z12.31 Encounter for screening mammogram for malignant neoplasm of breast (principal); R92.333 Mammographic heterogeneous density, bilateral breasts; R92.1 Mammographic calcification found on diagnostic imaging of breast
CPT/HCPCS: 77063; 77067